=== PATIENT | male | born 1945 | race Caucasian/White ===

== ENCOUNTER → 2017-08-22 | Outpatient (CLI) | payer MEDICARE, BC ==
[~2017-08-22] MED LIST: ASPI81 PO; FISH1000 PO; FOLI400T30 PO; GLUC15009 PO; PROS5TAB2 PO; TAB-TAB PO
[2017-08-22 13:45] LABS: AUTOMATED NEUTROPHIL # 2.6 TH/MM3 (1.8-7.7); BASOPHIL % 0.4 % (0.0-2.0); EOSINOPHIL % 0.8 % (0.0-4.0); HEMATOCRIT 30.8 % (39.0-51.0); HEMOGLOBIN 10.5 GM/DL (13.0-17.0); LYMPH % 14.9 % (9.0-44.0); LYMPHOCYTE # 0.5 TH/MM3 (1.0-4.8); MEAN CELL VOLUME 100.2 FL (80.0-100.0); MEAN CORPUSCULAR HEMOGLOBIN 34.2 PG (27.0-34.0); MEAN CORPUSCULAR HGB CONC 34.1 % (32.0-36.0); MEAN PLATELET VOLUME 8.1 FL (7.0-11.0); MONO % 12.4 % (0.0-8.0); MONOCYTE # 0.5 TH/MM3 (0-0.9); NEUT % 71.5 % (16.0-70.0); PLATELET COUNT 188 TH/MM3 (150-450); RED BLOOD COUNT 3.08 MIL/MM3 (4.50-5.90); RED CELL DISTRIBUTION WIDTH 15.3 % (11.6-17.2); WHITE BLOOD COUNT 3.6 TH/MM3 (4.0-11.0)
[2017-08-22 13:58] LABS: RHEUMATOID FACTOR SCREEN NEGATIVE (NEGATIVE)
[2017-08-22 14:00] LABS: ALBUMIN 2.9 GM/DL (3.4-5.0); AST (GOT) 22 U/L (15-37); BICARBONATE 28.7 MEQ/L (21.0-32.0); BLOOD UREA NITROGEN 21 MG/DL (7-18); CALCIUM 9.2 MG/DL (8.5-10.1); CHLORIDE 107 MEQ/L (98-107); GLOMERULAR FILTRATION RATE 54 ML/MIN (>89); GLUCOSE,FASTING 86 MG/DL (74-99); SODIUM (NA) 140 MEQ/L (136-145)
[2017-08-22 14:01] LABS: CHOLESTEROL 129 MG/DL (120-200)
[2017-08-22 14:07] LABS: WESTERGREN SEDIMENTATION RATE GREATER THAN 140 mm/hr (0-20)
[2017-08-22 14:12] LABS: ALKALINE PHOSPHATASE 81 U/L (45-117); ALT (GPT) 29 U/L (12-78); C-REACTIVE PROTEIN 0.56 MG/DL (0.00-0.30); CHOLESTEROL/ HDL RATIO 2.19 RATIO; HDL CHOLESTEROL 58.9 MG/DL (40.0-60.0); LDL CHOLESTEROL 59 MG/DL (0-99); TOTAL BILIRUBIN ADULT 0.3 MG/DL (0.2-1.0); TOTAL PROTEIN 10.2 GM/DL (6.4-8.2); TRIGLYCERIDES 55 MG/DL (42-150)
== END ==
LOC: PLAB 07:07
PROVIDERS: ATTEND Family Medicine
DX: Z00.00 Encounter for general adult medical examination without abnormal findings (principal); I10 Essential (primary) hypertension; M94.0 Chondrocostal junction syndrome [Tietze]; Z13.9 Encounter for screening, unspecified
CPT/HCPCS: 36415; 80053; 80061; 84443; 85025; 85652; 86140; 86430

== ENCOUNTER → 2017-09-22 | Outpatient (CLI) | payer MEDICARE, BC | LOC: PLAB 06:42 | PROVIDERS: ATTEND Internal Medicine Rheumatology | DX: R70.0 Elevated erythrocyte sedimentation rate (principal) | CPT/HCPCS: 36415; 85652; 86140 ==